=== PATIENT | male | born 1955 | race Caucasian/White ===

== ENCOUNTER 2019-04-07 05:12 | Day surgery (SDC) | payer BC ==
[~2019-04-07] VITALS: Ht 185.4 cm; Wt 109.6 kg
[2019-04-07 06:16] VITALS: BP 115/76
== END 2019-04-07 10:05 | disposition home or self-care (01) ==
LOC: OUT 05:12
PROVIDERS: ATTEND Otolaryngology
DX: L72.0 Epidermal cyst (principal); I10 Essential (primary) hypertension; Z79.899 Other long term (current) drug therapy
CPT/HCPCS: 21555; 88304; J0330; J0690; J2405; J2704; J3490; J7120; 88305